=== PATIENT | female | born 1995 | race African-American/Black ===

== ENCOUNTER 2024-12-30 18:20 | Emergency (ER) | payer OTHER ==
[~2024-12-30] VITALS: Ht 170.2 cm; Wt 52.6 kg
[2024-12-30] MEDS ORDERED: MECLIZINE HCL 25 MG TABLET ONE (19:45)
[2024-12-30] MEDS ORDERED: ACETAMINOPHEN 500 MG TABLET ONE (19:45)
[2024-12-30] MEDS: ACETAMINOPHEN 500 MG TABLET PO ONE (19:46)
[2024-12-30] MEDS: MECLIZINE HCL 25 MG TABLET PO ONE (19:46)
[2024-12-30 20:32] VITALS: BP 120/81
[2024-12-30 20:40] LABS: *URINE HCG, QUAL NEGATIVE (NEGATIVE)
[2024-12-30] MEDS ORDERED: MECL-159 PO (21:02)
[2024-12-30] MEDS ORDERED: METO-295 PO (21:02)
[2024-12-30 21:34] VITALS: BP 120/81; TEMP 98; O2SAT 100
== END 2024-12-30 21:08 | disposition home or self-care (01) ==
LOC: ER 18:20
DX: R42 Dizziness and giddiness (principal); R51.9 Headache, unspecified
CPT/HCPCS: 70450; 84703; A4606; A4663; A9150; J8597